=== PATIENT | male | born 1995 | race African-American/Black ===

== ENCOUNTER 2018-06-19 20:17 | Emergency (ER) | payer OTHER ==
[~2018-06-19] VITALS: Ht 167.6 cm; Wt 87.7 kg
[2018-06-19 21:45] VITALS: BP 138/84; TEMP 99.6
== END 2018-06-19 21:51 | disposition home or self-care (01) ==
LOC: ED 20:17
PROC: 0H9HXZZ Drainage of Right Upper Leg Skin, External Approach (ICD-10-PCS; principal; 2018-06-19)
DX: L02.415 Cutaneous abscess of right lower limb (principal)
CPT/HCPCS: 87070; 87205; 99283